=== PATIENT | female | born 1955 | race Caucasian/White ===

== ENCOUNTER 2017-05-03 11:20 | Emergency (ER) | payer OTHER ==
[2017-05-03 11:55] VITALS: BP 117/71; PULSE 104; RESP 20; TEMP 98.3
[2017-05-03] MEDS ORDERED: IBUPROFEN 600 MG TAB PO STA (12:14)
--- NOTE | 2017-05-03 12:16 | ED ---
General Adult HPI - General Chief complaint: Extremity Injury, Lower Stated complaint: Knee pain Time Seen by Provider: 05/03/17 12:01 Source: patient, RN notes reviewed Mode of arrival: ambulatory Limitations: no limitations - History of Present Illness Initial comments: 62-year-old female patient presents for a chief complaint of right knee pain. Patient states she was carrying boxes yesterday when she tried to open the door and felt pain in her right knee. Patient states she thinks she "twisted" her right knee. Patient states she has dislocated her patella years ago. Patient states she has pain with walking but can ambulate by walking on her toes. She states she has no pain with full flexion of the right knee. Patient states she believes it looks more swollen than the left knee. Patient denies pain in her ankle, foot, or hip. Patient states she has full sensation in her entire right leg and movement in her toes. Patient states that she does not want a brace as she has had poor experiences in the past with her knee locking. - Related Data Home Medications Medication Instructions Recorded Confirmed No Known Home Medications [No 05/03/17 05/03/17 Known Home Medications] Allergies Allergy/AdvReac Type Severity Reaction Status Date / Time No Known Allergies Allergy Verified 05/03/17 11:55 Review of Systems ROS Statement: Those systems with pertinent positive or pertinent negative responses have been documented in the HPI. ROS Other: All systems not noted in ROS Statement are negative. Past Medical History Past Medical History: No Reported History History of Any Multi-Drug Resistant Organisms: None Reported Past Surgical History: Bladder Surgery, Section, Hysterectomy Past Psychological History: No Psychological Hx Reported Smoking Status: Current every day smoker Past Alcohol Use History: None Reported Past Drug Use History: None Reported General Exam Limitations: no limitations Head exam: Present: atraumatic, normocephalic, normal inspection Respiratory exam: Present: normal lung sounds bilaterally. Absent: respiratory distress, wheezes, rales, rhonchi, stridor Cardiovascular Exam: Present: regular rate, normal rhythm Extremities exam: Present: full ROM (Patient has full range of motion of the right knee but complains of pain with full extension.), normal capillary refill (Refill less than 2 seconds in lower extremities bilaterally), joint swelling ( Patient has notable swelling in the right knee.), other (Patient's pedal and posterior tibial pulses 2+ in the lower extremities bilaterally. No coolness noted to the feet bilaterally. Patient has full sensation and full range of motion movement in feet and toes bilaterally.). Absent: tenderness, pedal edema Course Vital Signs 05/03/17 11:51 Temperature 98.3 F Pulse Rate 104 H Respiratory 20 Rate Blood Pressure 117/71 O2 Sat by Pulse 96 Oximetry Medical Decision Making - Medical Decision Making 62-year-old female presents to the emergency department for a chief complaint of right knee pain. Patient states she has dislocated her patella in the past though this was years ago. Patient states she was walking when she felt her knee twist and experienced pain. This happened one day ago. Patient is able to walk on the toes of the right foot. Patient has 2+ pulses in the lower extremities bilaterally including the pedal and posterior tibial pulses. Capillary refill less than 2 seconds in the lower extremities bilaterally. Patient has full range of motion of the right knee. She does have some pain with full extension. Patient's patella does not appear displaced on exam. There is no swelling or tenderness to the right calf. X-ray was obtained which showed No acute fracture or dislocation seen. A small amount of fluid is in the suprapatellar bursa. Patient states she does not want a brace at this time because of poor experiences in the past. Patient's knee was wrapped with an Murali wrap. Patient was given ibuprofen in the emergency department which did help pain and she was also given an ice pack. Patient was educated on resting, icing, compressing and, elevating the right extremity. She will also take ibuprofen for pain relief and inflammation which she has at home. Patient will follow up with primary care and/or orthopedics if pain persists. Patient will return to the emergency department if pain worsens or she notices a coolness to the right lower extremity. Disposition Clinical Impression: Knee pain Disposition: HOME SELF-CARE Condition: Good Instructions: Knee Sprain (ED) Additional Instructions: Please take ibuprofen every 8 hours for pain relief and to reduce swelling. Please wrap the knee as long as it is comfortable. Please rest and elevate the right extremity. Icing the right knee may also help with pain and swelling. If pain continues please follow up with orthopedics or primary care physician. If symptoms worsen please return to the emergency department. Referrals: Catrina Cheatham MD [Primary Care Provider] - 1-2 days Jose Hinkle DO [Doctor of Osteopathic Medicine] - 1-2 days Time of Disposition: 12:48
--- NOTE | 2017-05-03 12:34 | XR ---
EXAMINATION TYPE: XR knee complete RT DATE OF EXAM: 05/03/2017 COMPARISON: NONE HISTORY: Pain TECHNIQUE: Four views are submitted. FINDINGS: There is narrowing of the medial compartment of the knee joint with mild trochanteric. Small amount o f fluid in the suprapatellar bursa. Cortical thickening involving the distal diaphysis of the femur a ppears benign.. Osseous structures are intact. No acute fracture seen. IMPRESSION: 1. No acute fracture or dislocation.
== END 2017-05-03 13:08 | disposition home or self-care (01) ==
LOC: EC 11:20
DX: M25.561 Pain in right knee (principal); F17.200 Nicotine dependence, unspecified, uncomplicated
CPT/HCPCS: 99283

== ENCOUNTER → 2021-07-19 | Outpatient (CLI) | payer MEDICARE ==
--- NOTE | 2021-07-19 13:57 | XR ---
EXAMINATION TYPE: XR shoulder complete RT DATE OF EXAM: 07/19/2021 COMPARISON: NONE HISTORY: Pain TECHNIQUE: Three views are submitted. FINDINGS: The osseous structures are intact. There is no acute fracture or dislocation. The AC joint arthropa thy noted with diffuse osteopenia. IMPRESSION: 1. Severe AC joint arthropathy with diffuse osteopenia.
== END | disposition home or self-care (01) ==
LOC: RADXRMAIN 12:44
PROVIDERS: ATTEND Nurse Practitioner Family
DX: M85.811 Other specified disorders of bone density and structure, right shoulder (principal); M12.811 Other specific arthropathies, not elsewhere classified, right shoulder